=== PATIENT | female | born 1980 | race Caucasian/White ===

== ENCOUNTER 2016-10-18 19:25 | Emergency (ER) | payer SELFPAY ==
[~2016-10-18] VITALS: Ht 160 cm; Wt 68.0 kg
== END 2016-10-18 20:55 | disposition short-term general hospital (02) ==
LOC: ER 19:25
DX: K08.89 Other specified disorders of teeth and supporting structures (principal); E03.9 Hypothyroidism, unspecified; Z79.899 Other long term (current) drug therapy; Z88.6 Allergy status to analgesic agent